=== PATIENT | male | born 1955 | race Hispanic/Latino ===

== ENCOUNTER 2016-05-28 04:11 | Emergency (ER) | payer OTHER ==
[2016-05-28] MEDS ORDERED: PROTONIX IV ONE (06:28)
[2016-05-28] MEDS ORDERED: MORPHINE IV ONE ×2 (06:28→08:53)
[2016-05-28] MEDS ORDERED: ZOFRAN IV ONE (06:29)
[2016-05-28] MEDS ORDERED: NACL 0.9% 1000 ML 1,000 ML IV ONE (06:30)
--- NOTE | 2016-05-28 06:34 | Emergency Department Report ---
ED General Adult HPI - General Chief complaint: Abdominal Pain Time Seen by Provider: 05/28/16 06:26 - History of Present Illness Initial comments: Patient describes the onset of right flank pain yesterday. He states that by today he also had pain in the suprapubic area. He states that he's had some discomfort on urinating. He denies previous history of kidney stone. He states he has had similar pain before but he doesn't know what it's been due to. He denies fever or chills. He's had no nausea vomiting or diarrhea. He admits to drinking 3 drinks yesterday in order to "alleviate the pain". He states the pain now is dull and improved. Pain increases on movement. -: Gradual, days(s) Location: back Radiation: other (suprapubic area. The patient cannot state that the pain is radiating per se.) Quality: dull Consistency: intermittent Improves with: none Worsens with: none Associated Symptoms: other (discomfort urinating) Treatments Prior to Arrival: none - Related Data Home Medications Medication Instructions Recorded Confirmed Last Taken Aspirin [Baby Aspirin] 81 mg PO ONCE 12/21/12 05/28/16 12/17/14 Metoprolol [Lopressor TAB] 50 mg PO QDAY 12/21/12 05/28/16 12/17/14 Simvastatin [Simvastatin] 20 mg PO QDAY 12/21/12 05/28/16 12/17/14 Previous Rx's Medication Instructions Recorded Last Taken Type Lansoprazole (Nf) [Prevacid (Nf)] 30 mg PO QDAY #14 capsule 05/28/16 Unknown Rx traMADol [Ultram] 50 mg PO Q4HR PRN #14 tablet 05/28/16 Unknown Rx Allergies Allergy/AdvReac Type Severity Reaction Status Date / Time No Known Allergies Allergy Verified 12/18/14 04:11 ED Review of Systems ROS: Stated complaint: Other details as noted in HPI Constitutional: denies: chills, fever Eyes: denies: eye pain, eye discharge, vision change ENT: denies: ear pain, throat pain Respiratory: denies: cough, shortness of breath, wheezing Cardiovascular: denies: chest pain, palpitations Endocrine: no symptoms reported Gastrointestinal: abdominal pain. denies: nausea, diarrhea Genitourinary: dysuria (vague symptoms). denies: urgency Musculoskeletal: back pain (right flank). denies: joint swelling, arthralgia Skin: denies: rash, lesions Neurological: denies: headache, weakness, paresthesias Psychiatric: denies: anxiety, depression Hematological/Lymphatic: denies: easy bleeding, easy bruising ED Past Medical Hx - Past Medical History Hx Hypertension: Yes Additional medical history: high cholesterol - Social History Smoking Status: Current Every Day Smoker Substance Use Type: Alcohol - Medications Home Medications: Home Medications Medication Instructions Recorded Confirmed Last Taken Type Aspirin [Baby Aspirin] 81 mg PO ONCE 12/21/12 05/28/16 12/17/14 History Metoprolol [Lopressor TAB] 50 mg PO QDAY 12/21/12 05/28/16 12/17/14 History Simvastatin [Simvastatin] 20 mg PO QDAY 12/21/12 05/28/16 12/17/14 History Lansoprazole (Nf) [Prevacid (Nf)] 30 mg PO QDAY #14 capsule 05/28/16 Unknown Rx traMADol [Ultram] 50 mg PO Q4HR PRN #14 tablet 05/28/16 Unknown Rx ED Physical Exam - General General appearance: alert, in no apparent distress - Head Head exam: Present: atraumatic, normocephalic - Eye Eye exam: Present: normal appearance, PERRL, EOMI. Absent: scleral icterus - ENT ENT exam: Present: mucous membranes moist - Neck Neck exam: Present: normal inspection - Respiratory Respiratory exam: Present: normal lung sounds bilaterally. Absent: respiratory distress - Cardiovascular Cardiovascular Exam: Present: regular rate, normal rhythm. Absent: systolic murmur, diastolic murmur, rubs, gallop - GI/Abdominal GI/Abdominal exam: Present: soft, normal bowel sounds. Absent: distended, tenderness, guarding, rebound, rigid - Rectal Rectal exam: Present: deferred - Extremities Exam Extremities exam: Present: normal inspection - Back Exam Back exam: Present: normal inspection. Absent: CVA tenderness (R), CVA tenderness (L), muscle spasm, paraspinal tenderness, vertebral tenderness - Neurological Exam Neurological exam: Present: alert, oriented X3, CN II-XII intact. Absent: motor sensory deficit - Psychiatric Psychiatric exam: Present: normal affect, normal mood - Skin Skin exam: Present: warm, dry, intact, normal color. Absent: rash ED Course Vital Signs 05/28/16 05/28/16 05/28/16 07:05 07:45 08:22 Pulse Rate 78 Respiratory 20 16 16 Rate Blood Pressure 153/75 [Right] O2 Sat by Pulse 95 95 Oximetry - Reevaluation(s) Reevaluation #1: H and symptoms have improved. His vital signs are stable. His exam shows a benign abdomen. He is appropriate for outpatient referral. 05/28/16 09:08 ED Medical Decision Making - Lab Data Result diagrams: 05/28/16 07:14 05/28/16 07:14 Laboratory Results - last 24 hr 05/28/16 05/28/16 05/28/16 07:14 07:14 07:14 WBC 8.4 RBC 4.60 Hgb 14.9 Hct 43.1 MCV 94 MCH 32 MCHC 35 H RDW 13.5 Plt Count 289 Lymph % (Auto) 10.8 L [place] % (Auto) 8.0 H Eos % (Auto) 2.5 Baso % (Auto) 0.3 Lymph # 0.9 L [place] # 0.7 Eos # 0.2 Baso # 0.0 Seg Neutrophils % 78.4 H Seg Neutrophils # 6.6 PT 12.6 INR 0.95 Sodium 133 L Potassium 4.5 Chloride 97.3 L Carbon Dioxide 22 Anion Gap 18 BUN 14 Creatinine 0.6 L Estimated GFR > 60 BUN/Creatinine Ratio 23.33 Glucose 88 Calcium 8.6 Total Bilirubin 0.5 Direct Bilirubin < 0.2 AST 19 ALT 17 Alkaline Phosphatase 72 Total Creatine Kinase CK-MB (CK-2) CK-MB (CK-2) Rel Index Total Protein 6.6 Albumin 4.0 Albumin/Globulin Ratio 1.5 Amylase 76 Lipase 30 Urine Color Urine Turbidity Urine pH Ur Specific [place] Urine Protein Urine Glucose (UA) Urine Ketones Urine Blood Urine Nitrite Urine Bilirubin Urine Urobilinogen Ur Leukocyte Esterase Urine WBC (Auto) Urine RBC (Auto) 05/28/16 05/28/16 07:14 08:20 WBC RBC Hgb Hct MCV MCH MCHC RDW Plt Count Lymph % (Auto) [place] % (Auto) Eos % (Auto) Baso % (Auto) Lymph # [place] # Eos # Baso # Seg Neutrophils % Seg Neutrophils # PT INR Sodium Potassium Chloride Carbon Dioxide Anion Gap BUN Creatinine Estimated GFR BUN/Creatinine Ratio Glucose Calcium Total Bilirubin Direct Bilirubin AST ALT Alkaline Phosphatase Total Creatine Kinase 79 CK-MB (CK-2) 3.3 CK-MB (CK-2) Rel Index 4.1 H Total Protein Albumin Albumin/Globulin Ratio Amylase Lipase Urine Color Yellow Urine Turbidity Clear Urine pH 6.0 Ur Specific [place] 1.011 Urine Protein <15 mg/dl Urine Glucose (UA) Neg Urine Ketones Neg Urine Blood Neg Urine Nitrite Neg Urine Bilirubin Neg Urine Urobilinogen < 2.0 Ur Leukocyte Esterase Neg Urine WBC (Auto) < 1.0 Urine RBC (Auto) < 1.0 - Radiology Data Radiology results: report reviewed interpreted by me: Likely old pyelonephritis. No acute finding. Critical care attestation.: If time is entered above; I have spent that time in minutes in the direct care of this critically ill patient, excluding procedure time. ED Disposition Clinical Impression: Right flank pain Disposition: DISCHARGED TO HOME OR SELFCARE Is pt being admited?: No Does the pt Need Aspirin: No Condition: Stable Instructions: Flank Pain (ED), Abdominal Pain (ED) Additional Instructions: Return any acute change or worsening symptoms. Follow-up with a primary care physician or GI specialist. Prescriptions: Lansoprazole (Nf) [Prevacid (Nf)] 30 mg PO QDAY #14 capsule traMADol [Ultram] 50 mg PO Q4HR PRN #14 tablet PRN Reason: Pain Referrals: [facility] [Provider Group] - 3-5 Days [facility] [Provider Group] - 2-3 Days [facility], [Primary Care Provider] - 2-3 Days Time of Disposition: 09:10
[2016-05-28 07:47] LABS: Basophils % (Auto) 0.3 % (0.0-1.8); Eosinophils % (Auto) 2.5 % (0.0-4.3); Hematocrit 43.1 % (35.5-45.6); Hemoglobin 14.9 gm/dl (11.8-15.2); Mean Corpuscular HGB Conc 35 % (32-34); Mean Corpuscular Hemoglobin 32 pg (28-32); Mean Corpuscular Volume 94 fl (84-94); Platelet Count 289 K/mm3 (140-440); Red Cell Distribution Width 13.5 % (13.2-15.2); White Blood Count 8.4 K/mm3 (4.5-11.0)
[2016-05-28 07:51] LABS: Creatine Kinase MB 3.3 ng/mL (0.0-4.0)
[2016-05-28 07:52] LABS: Alanine Aminotransferase 17 units/L (7-56); Albumin/Globulin Ratio 1.5 %; Alkaline Phosphatase 72 units/L (35-129); Amylase 76 units/L (27-131); Anion Gap 18 mmol/L; BUN/Creatinine Ratio 23.33; Bilirubin,Total 0.5 mg/dL (0.1-1.2); Blood Urea Nitrogen 14 mg/dL (9-20); Calcium 8.6 mg/dL (8.4-10.2); Carbon Dioxide 22 mmol/L (22-30); Chloride 97.3 mmol/L (98-107); Glucose 88 mg/dL (75-100); Lipase 30 units/L (13-60); Potassium 4.5 mmol/L (3.6-5.0); Sodium 133 mmol/L (137-145); Total Protein 6.6 g/dL (6.3-8.2)
--- NOTE | 2016-05-28 07:53 | Cat Scan Report ---
CT scan of abdomen and pelvis without IV contrast: History pleuritic flank pain. Findings: Normal lung bases. No pleural pericardial effusion. Borderline enlarged liver. Normal spleen. No intrahepatic or extrahepatic duct dilatation. Normal gallbladder. Normal pancreas. Normal adrenal glands. No calculi in kidney parenchyma. No hydronephrosis. There is minimal bilateral perirenal stranding probably related to previous infection or previous obstruction. Normal bladder. No free intraperitoneal fluid or air. No evidence of adenopathy. Atherosclerotic calcified abdominal aorta without aneurysm. The appendix is not visualized. No evidence of appendicitis is noted. No evidence of diverticulitis. Gaseous colon with moderate amount of stool in colon predominantly in the ascending and transverse colon. Impression: Findings as detailed above. No acute changes .
[2016-05-28 07:57] LABS: INR 0.95 (0.87-1.13)
[2016-05-28 08:03] LABS: Bilirubin,Direct < 0.2 mg/dL (0-0.2)
[2016-05-28 08:54] LABS: Bilirubin,Urine NEG (Negative); Blood,Urine NEG (Negative); Ketones,Urine NEG (Negative); Leukocyte Esterase,Urine NEG (Negative); Nitrite,Urine NEG (Negative); Protein,Urine <15 mg/dL mg/dL (Negative); RBC,Urine < 1.0 /HPF (0.0-6.0); Urobilinogen,Urine < 2.0 mg/dL (<2.0); WBC,Urine < 1.0 /HPF (0.0-6.0)
[2016-05-28 09:58] VITALS: BP 149/69
== END 2016-05-28 09:12 | disposition home or self-care (01) ==
LOC: ED 04:11
DX: R10.30 Lower abdominal pain, unspecified (principal); I10 Essential (primary) hypertension; E78.00 Pure hypercholesterolemia, unspecified; F17.200 Nicotine dependence, unspecified, uncomplicated
CPT/HCPCS: 36415; 74176; 80048; 80074; 81001; 82150; 82550; 82553; 83690; 85025; 85610; 96361; 96374; 96375; 96376; 99284; C9113; J2270; J2405; J7030

== ENCOUNTER 2016-12-23 09:04 | Emergency (ER) | payer OTHER ==
--- NOTE | 2016-12-23 09:40 | Emergency Department Report ---
ED General Adult HPI - General Chief complaint: Abdominal Pain Stated complaint: LT SIDE PAIN Time Seen by Provider: 12/23/16 09:38 Source: patient, EMS Mode of arrival: Stretcher Limitations: No Limitations - History of Present Illness Initial comments: Patient is a 61-year-old male past medical history of hypertension who presents with left flank pain status post fall. Patient states that he fell last night at 23:00 he woke up this morning at 01:00 and noticed a lot of bruising on the left side of his abdomen. He states that the pain is a 10 out of 10 and radiates to his groin. He states that he noticed some blood in his urine earlier on today. Touching and moving makes the pain worse nothing makes the pain better. Patient states that touching his left side and moving makes the pain worse nothing makes it better. He has a deep achy type of pain. - Related Data Home Medications Medication Instructions Recorded Confirmed Last Taken Aspirin [Baby Aspirin] 81 mg PO ONCE 12/21/12 05/28/16 12/17/14 Metoprolol [Lopressor TAB] 50 mg PO QDAY 12/21/12 05/28/16 12/17/14 Simvastatin [Simvastatin] 20 mg PO QDAY 12/21/12 05/28/16 12/17/14 Previous Rx's Medication Instructions Recorded Last Taken Type Lansoprazole (Nf) [Prevacid (Nf)] 30 mg PO QDAY #14 capsule 05/28/16 Unknown Rx traMADol [Ultram] 50 mg PO Q4HR PRN #14 tablet 05/28/16 Unknown Rx Acetaminophen 500 mg PO Q6HR PRN #20 tablet 12/23/16 Unknown Rx Cyclobenzaprine HCl [Flexeril 5 MG 5 mg PO TID PRN #20 tab 12/23/16 Unknown Rx TAB] Naproxen 250 mg PO BID PRN #20 tablet 12/23/16 Unknown Rx Allergies Allergy/AdvReac Type Severity Reaction Status Date / Time No Known Allergies Allergy Verified 12/18/14 04:11 ED Review of Systems ROS: Stated complaint: LT SIDE PAIN Other details as noted in HPI Constitutional: denies: chills, fever Eyes: denies: eye pain, eye discharge, vision change ENT: denies: ear pain, throat pain Respiratory: denies: cough, shortness of breath, wheezing Cardiovascular: denies: chest pain, palpitations Endocrine: no symptoms reported Gastrointestinal: as per HPI, abdominal pain. denies: nausea, diarrhea Genitourinary: denies: urgency, dysuria Musculoskeletal: denies: back pain, joint swelling, arthralgia Skin: denies: rash, lesions Neurological: denies: headache, weakness, paresthesias Psychiatric: denies: anxiety, depression Hematological/Lymphatic: denies: easy bleeding, easy bruising ED Past Medical Hx - Past Medical History Previous Medical History?: Yes Hx Hypertension: Yes Additional medical history: high cholesterol - Surgical History Past Surgical History?: No - Social History Smoking Status: Current Every Day Smoker Substance Use Type: Alcohol - Medications Home Medications: Home Medications Medication Instructions Recorded Confirmed Last Taken Type Aspirin [Baby Aspirin] 81 mg PO ONCE 12/21/12 05/28/16 12/17/14 History Metoprolol [Lopressor TAB] 50 mg PO QDAY 12/21/12 05/28/16 12/17/14 History Simvastatin [Simvastatin] 20 mg PO QDAY 12/21/12 05/28/16 12/17/14 History Lansoprazole (Nf) [Prevacid (Nf)] 30 mg PO QDAY #14 capsule 05/28/16 Unknown Rx traMADol [Ultram] 50 mg PO Q4HR PRN #14 tablet 05/28/16 Unknown Rx Acetaminophen 500 mg PO Q6HR PRN #20 tablet 12/23/16 Unknown Rx Cyclobenzaprine HCl [Flexeril 5 MG 5 mg PO TID PRN #20 tab 12/23/16 Unknown Rx TAB] Naproxen 250 mg PO BID PRN #20 tablet 12/23/16 Unknown Rx ED Physical Exam - General Limitations: No Limitations General appearance: alert, in no apparent distress - Head Head exam: Present: atraumatic, normocephalic - Eye Eye exam: Present: normal appearance - ENT ENT exam: Present: mucous membranes moist - Neck Neck exam: Present: normal inspection - Respiratory Respiratory exam: Present: normal lung sounds bilaterally. Absent: respiratory distress - Cardiovascular Cardiovascular Exam: Present: regular rate, normal rhythm. Absent: systolic murmur, diastolic murmur, rubs, gallop - GI/Abdominal GI/Abdominal exam: Present: tenderness (left flank tenderness ), normal bowel sounds - Rectal Rectal exam: Present: deferred - Extremities Exam Extremities exam: Present: normal inspection - Back Exam Back exam: Present: normal inspection - Neurological Exam Neurological exam: Present: alert, oriented X3 - Psychiatric Psychiatric exam: Present: normal affect, normal mood - Skin Skin exam: Present: warm, dry, intact, normal color. Absent: rash ED Course Vital Signs 12/23/16 12/23/16 12/23/16 09:11 09:15 09:30 Temperature 97.0 F L Pulse Rate 87 98 H 86 Respiratory 22 14 21 Rate Blood Pressure 162/90 149/94 O2 Sat by Pulse 96 Oximetry 12/23/16 12/23/16 12/23/16 09:45 10:00 10:55 Temperature Pulse Rate 82 84 Respiratory 20 22 17 Rate Blood Pressure 149/94 163/89 O2 Sat by Pulse 96 95 Oximetry 12/23/16 12/23/16 12/23/16 13:12 13:15 13:30 Temperature Pulse Rate Respiratory Rate Blood Pressure 163/89 163/89 147/83 O2 Sat by Pulse 99 95 94 Oximetry 12/23/16 13:45 Temperature Pulse Rate Respiratory Rate Blood Pressure 147/83 O2 Sat by Pulse 95 Oximetry ED Medical Decision Making - Lab Data Result diagrams: 12/23/16 09:31 12/23/16 09:31 Lab Results 12/23/16 12/23/16 12/23/16 Range/Units 09:31 09:31 09:55 WBC 9.2 (4.5-11.0) K/mm3 RBC 4.58 (3.65-5.03) M/mm3 Hgb 15.2 (11.8-15.2) gm/dl Hct 42.9 (35.5-45.6) % MCV 94 (84-94) fl MCH 33 H (28-32) pg MCHC 35 H (32-34) % RDW 14.3 (13.2-15.2) % Plt Count 273 (140-440) K/mm3 Lymph % (Auto) 10.9 L (13.4-35.0) % [place] % (Auto) 8.6 H (0.0-7.3) % Eos % (Auto) 1.6 (0.0-4.3) % Baso % (Auto) 0.5 (0.0-1.8) % Lymph # 1.0 L (1.2-5.4) K/mm3 [place] # 0.8 (0.0-0.8) K/mm3 Eos # 0.1 (0.0-0.4) K/mm3 Baso # 0.0 (0.0-0.1) K/mm3 Seg Neutrophils % 78.4 H (40.0-70.0) % Seg Neutrophils # 7.2 (1.8-7.7) K/mm3 PT 12.8 (12.2-14.9) Sec. INR 0.92 (0.87-1.13) APTT 25.9 (24.2-36.6) Sec. Sodium 134 L (137-145) mmol/L Potassium 4.4 (3.6-5.0) mmol/L Chloride 96.1 L (98-107) mmol/L Carbon Dioxide 24 (22-30) mmol/L Anion Gap 18 mmol/L BUN 7 L (9-20) mg/dL Creatinine 0.6 L (0.8-1.5) mg/dL Estimated GFR > 60 ml/min BUN/Creatinine Ratio 12 % Glucose 95 (75-100) mg/dL Calcium 8.6 (8.4-10.2) mg/dL Total Bilirubin 0.70 (0.1-1.2) mg/dL AST 20 (5-40) units/L ALT 17 (7-56) units/L Alkaline Phosphatase 69 (35-129) units/L Total Protein 6.8 (6.3-8.2) g/dL Albumin 4.1 (3.9-5) g/dL Albumin/Globulin Ratio 1.5 % Lipase 30 (13-60) units/L Urine Color (Yellow) Urine Turbidity (Clear) Urine pH (5.0-7.0) Ur Specific [place] (1.003-1.030) Urine Protein (Negative) mg/dL Urine Glucose (UA) (Negative) mg/dL Urine Ketones (Negative) mg/dL Urine Blood (Negative) Urine Nitrite (Negative) Urine Bilirubin (Negative) Urine Urobilinogen (<2.0) mg/dL Ur Leukocyte Esterase (Negative) Urine WBC (Auto) (0.0-6.0) /HPF Urine RBC (Auto) (0.0-6.0) /HPF U Epithel Cells (Auto) (0-13.0) /HPF Urine Mucus /HPF 12/23/16 Range/Units 10:53 WBC (4.5-11.0) K/mm3 RBC (3.65-5.03) M/mm3 Hgb (11.8-15.2) gm/dl Hct (35.5-45.6) % MCV (84-94) fl MCH (28-32) pg MCHC (32-34) % RDW (13.2-15.2) % Plt Count (140-440) K/mm3 Lymph % (Auto) (13.4-35.0) % [place] % (Auto) (0.0-7.3) % Eos % (Auto) (0.0-4.3) % Baso % (Auto) (0.0-1.8) % Lymph # (1.2-5.4) K/mm3 [place] # (0.0-0.8) K/mm3 Eos # (0.0-0.4) K/mm3 Baso # (0.0-0.1) K/mm3 Seg Neutrophils % (40.0-70.0) % Seg Neutrophils # (1.8-7.7) K/mm3 PT (12.2-14.9) Sec. INR (0.87-1.13) APTT (24.2-36.6) Sec. Sodium (137-145) mmol/L Potassium (3.6-5.0) mmol/L Chloride (98-107) mmol/L Carbon Dioxide (22-30) mmol/L Anion Gap mmol/L BUN (9-20) mg/dL Creatinine (0.8-1.5) mg/dL Estimated GFR ml/min BUN/Creatinine Ratio % Glucose (75-100) mg/dL Calcium (8.4-10.2) mg/dL Total Bilirubin (0.1-1.2) mg/dL AST (5-40) units/L ALT (7-56) units/L Alkaline Phosphatase (35-129) units/L Total Protein (6.3-8.2) g/dL Albumin (3.9-5) g/dL Albumin/Globulin Ratio % Lipase (13-60) units/L Urine Color Yellow (Yellow) Urine Turbidity Clear (Clear) Urine pH 7.0 (5.0-7.0) Ur Specific [place] 1.010 (1.003-1.030) Urine Protein <15 mg/dl (Negative) mg/dL Urine Glucose (UA) Neg (Negative) mg/dL Urine Ketones Tr (Negative) mg/dL Urine Blood Neg (Negative) Urine Nitrite Neg (Negative) Urine Bilirubin Neg (Negative) Urine Urobilinogen < 2.0 (<2.0) mg/dL Ur Leukocyte Esterase Neg (Negative) Urine WBC (Auto) 1.0 (0.0-6.0) /HPF Urine RBC (Auto) 1.0 (0.0-6.0) /HPF U Epithel Cells (Auto) < 1.0 (0-13.0) /HPF Urine Mucus Few /HPF - Radiology Data Radiology results: report reviewed, image reviewed CT pelvis with contrast: Shows no acute visceral osseous injury no fracture noted in the hip - Medical Decision Making Chief medical diagnosis: Left flank hematoma Differential medical diagnosis: Spleen injury: Left hip fracture CBC, CMP, PTT and INR, IV pain medication, oral pain medication and CT scan with contrast. Patient's feeling better after IV pain medication CT scan and laboratory findings are unremarkable patient will go home with Tylenol and naproxen to take for his pain. Discussed plan with patient and he agrees with plan. Additional verbal discharge instructions were given. Patient most likely just has left flank pain secondary to his fall. Critical care attestation.: If time is entered above; I have spent that time in minutes in the direct care of this critically ill patient, excluding procedure time. ED Disposition Clinical Impression: Left flank pain Fall Qualifiers: Encounter type: initial encounter Qualified Code(s): W19.XXXA - Unspecified fall, initial encounter Disposition: TO HOME OR SELFCARE Is pt being admited?: No Does the pt Need Aspirin: No Condition: Stable Instructions: Flank Pain (ED) Prescriptions: Acetaminophen 500 mg PO Q6HR PRN #20 tablet PRN Reason: Pain Cyclobenzaprine HCl [Flexeril 5 MG TAB] 5 mg PO TID PRN #20 tab PRN Reason: Muscle Spasm Naproxen 250 mg PO BID PRN #20 tablet PRN Reason: Pain Referrals: PRIMARY CARE, [Primary Care Provider] - 3-5 Days Forms: Work/School Release Form(ED)
[2016-12-23] MEDS ORDERED: MORPHINE IV ONE (09:41)
[2016-12-23 09:50] LABS: Basophils % (Auto) 0.5 % (0.0-1.8); Eosinophils % (Auto) 1.6 % (0.0-4.3); Hematocrit 42.9 % (35.5-45.6); Hemoglobin 15.2 gm/dl (11.8-15.2); Mean Corpuscular HGB Conc 35 % (32-34); Mean Corpuscular Hemoglobin 33 pg (28-32); Mean Corpuscular Volume 94 fl (84-94); Platelet Count 273 K/mm3 (140-440); Red Blood Count 4.58 M/mm3 (3.65-5.03); Red Cell Distribution Width 14.3 % (13.2-15.2); White Blood Count 9.2 K/mm3 (4.5-11.0)
[2016-12-23 10:05] LABS: Alanine Aminotransferase 17 units/L (7-56); Albumin 4.1 g/dL (3.9-5); Albumin/Globulin Ratio 1.5 %; Alkaline Phosphatase 69 units/L (35-129); Anion Gap 18 mmol/L; BUN/Creatinine Ratio 12; Blood Urea Nitrogen 7 mg/dL (9-20); Calcium 8.6 mg/dL (8.4-10.2); Carbon Dioxide 24 mmol/L (22-30); Chloride 96.1 mmol/L (98-107); Glucose 95 mg/dL (75-100); Lipase 30 units/L (13-60); Potassium 4.4 mmol/L (3.6-5.0); Sodium 134 mmol/L (137-145); Total Protein 6.8 g/dL (6.3-8.2)
[2016-12-23 10:39] LABS: INR 0.92 (0.87-1.13); Partial Thromboplastin Time 25.9 Sec. (24.2-36.6)
[2016-12-23] MEDS ORDERED: NACL ONE (10:44)
[2016-12-23 11:04] LABS: Bilirubin,Urine NEG (Negative); Blood,Urine NEG (Negative); Ketones,Urine TR mg/dL (Negative); Leukocyte Esterase,Urine NEG (Negative); Mucus,Urine FEW /HPF; Nitrite,Urine NEG (Negative); Protein,Urine <15 mg/dL mg/dL (Negative); Urobilinogen,Urine < 2.0 mg/dL (<2.0)
--- NOTE | 2016-12-23 12:01 | Cat Scan Report ---
CT SCAN OF THE ABDOMEN AND PELVIS WITH CONTRAST: HISTORY: Left abdominal pain after fall, left hip pain. TECHNIQUE: Helical CT in 1.25mm intervals following IV contrast. Sagittal and coronal reconstructions. FINDINGS: The liver is normal in size and is without focal defect. No gallstones or biliary dilatation are noted. The spleen and pancreas demonstrate a normal size and attenuation with no evidence of abnormal mass. The kidneys are normal in size and position with no evidence of hydronephrosis or mass. The adrenal glands are normal. There is no intestinal obstruction or ascites. Normal appendix. There are diffuse calcifications in the abdominal aorta but no evidence for aneurysm No abnormalities are identified within the retroperitoneum or mesentery. There is no evidence of peritoneal air or fluid. There is no evidence of any abnormal masses or fluid collections within the pelvis. No adenopathy is identified. The bladder is normal. Heart size is normal. There is linear scarring in the right lower lobe, otherwise, the lungs are clear. Moderate multilevel degenerative changes are noted throughout the spine. No fracture or suspicious bony lesion. The left hip is intact. IMPRESSION: No acute visceral or osseous injury. Chronic findings as described.
[2016-12-23] MEDS ORDERED: NORCO 10/325 PO ONE (12:54)
[2016-12-23 15:39] VITALS: BP 161/72
== END 2016-12-23 16:16 | disposition home or self-care (01) ==
LOC: ED 09:04
DX: R10.9 Unspecified abdominal pain (principal); I10 Essential (primary) hypertension; F17.200 Nicotine dependence, unspecified, uncomplicated; E78.00 Pure hypercholesterolemia, unspecified; W19.XXXA Unspecified fall, initial encounter; Y93.89 Activity, other specified; Y99.8 Other external cause status; Y92.89 Other specified places as the place of occurrence of the external cause
CPT/HCPCS: 36415; 74177; 80053; 81001; 83690; 85025; 85610; 85730; 96374; 99284; J2270; Q9967